=== PATIENT | female | born 1995 | race Caucasian/White ===

== ENCOUNTER 2017-02-13 01:30 | Emergency (ER) | payer BC, OTHER ==
[2017-02-13 01:41] VITALS: BP 140/83
[2017-02-13] MEDS ORDERED: Ondansetron 4 MG Tab.DIS PO ONE (01:58)
[2017-02-13] MEDS ORDERED: Acetaminophen/HYDROcodone 325-5 MG Tab PO ONE (01:58)
--- NOTE | 2017-02-13 02:04 | EDM.PDOC ---
ED HPI LOWER BACK PAIN/INJURY - General Chief Complaint: Back Pain or Injury Stated Complaint: LOWER BACK PAIN Time Seen by Provider: 02/13/17 01:45 Source of Information: Reports: Patient, RN notes reviewed - History of Present Illness INITIAL COMMENTS - FREE TEXT/NARRATIVE: 21-year-old female with onset of low back pain about 2 hours ago. The pain is in her low back. This awakened her from sleep. There is and achiness of the left low back with secondary spasms. The pain does not radiate to the left groin or to the abdomen or pelvis. She's had no recent voiding symptomatology. No nausea vomiting fever or chills. The pain is worse with certain types of motion. She states that she and her were involved in a moving process yesterday. She does not recall any particular injury but a lot of lifting bending and twisting would've been associated with that. She also did deliver a baby about 6 months ago. She states she still is having occasional spotting associated with that. He states the spotting was a little brighter than usual early this morning. - Related Data Allergies/ADRs: Allergies Allergy/AdvReac Type Severity Reaction Status Date / Time benzyl alcohol Allergy Anaphylactic Verified 02/13/17 01:38 Shock Latex, Natural Rubber Allergy Hives Verified 02/13/17 01:38 red dye Allergy Vomiting Verified 02/13/17 01:38 Home Meds: Home Meds Ibuprofen 600 mg PO ONCALL PRN 02/13/17 [History] Past Medical History HEENT History: Reports: None Cardiovascular History: Reports: Other (see below) Other Cardiovascular History: Hypotension HOME AIDE History: Reports: Hematologic History: Reports: Anemia - Past Surgical History HEENT Surgical History: Reports: Oral surgery Other HEENT Surgeries/Procedures: wisdom teeth Cardiovascular Surgical History: Reports: None Social & Family History - Family History Family Medical History: Noncontributory - Tobacco Use Smoking Status *Q: Never Smoker Second Hand Smoke Exposure: No - Caffeine Use Caffeine Use: Reports: Soda - Recreational Drug Use Recreational Drug Use: No ED ROS GENERAL - Review of Systems Review Of Systems: See Below Constitutional: Denies: fever, chills, diaphoresis HEENT: Reports: No symptoms Respiratory: Denies: Shortness of Breath Cardiovascular: Denies: Chest pain GI/Abdominal: Denies: Abdominal pain, Diarrhea, Nausea, Vomiting : Reports: other (Occasional mild spotting) Musculoskeletal: Reports: back pain (Left low back) Skin: Reports: no symptoms Neurological: Denies: Numbness, Tingling ED EXAM,LOWER BACK PAIN/INJURY - Physical Exam Exam: See Below General Appearance: alert, mild distress Eye Exam: bilateral eye: PERRL Throat/Mouth: Normal inspection, Normal oropharynx Head: atraumatic. No: facial swelling Neck: supple, full range of motion Respiratory/Chest: no respiratory distress, lungs clear, normal breath sounds Cardiovascular: regular rate, rhythm GI/Abdominal: soft, non tender. No: guarding, rebound Back Exam: No: CVA tenderness (L), CVA tenderness (R) Extremities: normal inspection, normal range of motion Neurological: alert, normal mood/affect, no motor/sensory deficits Course - Vital Signs Last Recorded V/S: Last Vital Signs Temp 96.5 F 02/13/17 01:39 Pulse 61 02/13/17 01:39 Resp 18 02/13/17 01:39 BP 140/83 02/13/17 01:39 Pulse Ox 100 02/13/17 01:39 - Orders/Labs/Meds Meds: Medications Discontinued Medications Generic Name Dose Route Start Last Admin Trade Name Sohanq PRN Reason Stop Dose Admin Hydrocodone Bitart/Acetaminophen 1 tab 02/13/17 01:58 02/13/17 02:03 [place] 325-5 Mg PO 02/13/17 01:59 1 tab ONETIME ONE Administration Ondansetron HCl 4 mg 02/13/17 01:58 02/13/17 02:03 Zofran Odt PO 02/13/17 01:59 4 mg ONETIME ONE Administration - Re-Assessments/Exams Free Text/Narrative Re-Assessment/Exam: 02/13/17 03:10 Patient had no voiding symptoms. With her spotting we would need have done a catheter UA to get a good sample. We are going to hold off on that for now. She has no abdominal or pelvic pain or tenderness. Patient is most worried about getting pain relief at this point in time. We have given a hydrocodone 5/325. She is breast feeding so precautions have been discussed with her and her . Discharge instructions as documented Departure - Departure Time of Disposition: 02:15 Disposition: Home, Self-Care 01 Condition: fair Clinical Impression: Back pain Qualifiers: Back pain location: low back pain Chronicity: acute Back pain laterality: left Sciatica presence: without sciatica Qualified Code(s): M54.5 - Low back pain Instructions: Back Pain, Adult Referrals: PCP,None [Primary Care Provider] - Forms: ED Department Discharge Additional Instructions: Rest back, alternate ice and heat as needed, you've been given a hydrocodone pain pill here in the ED. I recommend you pump, not breast feed for at least 6- 8 hours after taking hydrocodone. You also may take Advil or ibuprofen 600 mg 2- 3 times daily for extra pain relief and for inflammation, Tylenol every 6-8 hours if needed for further discomfort or hydrocodone if needed for severe pain. Do not take Tylenol and hydrocodone at the same time. Be aware that the narcotic effect will pass into the breast milk. Therefore you should pump as much is possible if taking further hydrocodone. Followup clinic if discomfort not resolving within one to 2 days as expected, return to ED if symptoms worsening in any way.
== END 2017-02-13 02:23 | disposition home or self-care (01) ==
LOC: JD.ED 01:30
DX: M54.5 Low back pain (principal); Z98.890 Other specified postprocedural states; Z86.2 Personal history of diseases of the blood and blood-forming organs and certain disorders involving the immune mechanism; Z91.041 Radiographic dye allergy status; Z91.040 Latex allergy status; Z88.8 Allergy status to other drugs, medicaments and biological substances
CPT/HCPCS: 99283; A9270